=== PATIENT | female | born 1965 | race Caucasian/White ===

== ENCOUNTER 2022-07-05 11:24 | Emergency (ER) | payer MEDICAID ==
[~2022-07-05] VITALS: Ht 170.2 cm; Wt 61.4 kg
[2022-07-05 11:33] VITALS: BP 120/75
[2022-07-05] MEDS ORDERED: BUPR-94 PO (14:02)
[2022-07-05] MEDS ORDERED: CHOL100025 PO (14:02)
[2022-07-05] MEDS ORDERED: MIRT45TA79 PO (14:02)
[2022-07-05] MEDS ORDERED: ATOR40TA71 PO (14:02)
[2022-07-05] MEDS ORDERED: OMEG1CAP46 PO (14:02)
[2022-07-05] MEDS ORDERED: LEVE500T99 PO (14:02)
[2022-07-05] MEDS ORDERED: BACL-11 PO (14:02)
[2022-07-05] MEDS ORDERED: MULT-1074 PO (14:02)
[2022-07-05] MEDS ORDERED: ONDA4TAB12 PO (14:02)
[2022-07-05] MEDS ORDERED: GABA-534 PO (14:02)
[2022-07-05] MEDS ORDERED: OXYC-145 PO (14:02)
== END 2022-07-05 14:23 | disposition home or self-care (01) ==
LOC: ER 11:24
DX: Z76.0 Encounter for issue of repeat prescription (principal); E78.00 Pure hypercholesterolemia, unspecified
CPT/HCPCS: 99284

== ENCOUNTER 2022-07-19 13:26 | Emergency (ER) | payer MEDICAID ==
[~2022-07-19] VITALS: Ht 170.2 cm; Wt 61.4 kg
[~2022-07-19 13:26] MED LIST: ATOR40TA71 PO; BACL-11 PO; BUPR-94 PO; CHOL100025 PO; GABA-534 PO; LEVE500T99 PO; MIRT45TA79 PO; MULT-1074 PO; OMEG1CAP46 PO; ONDA4TAB12 PO; OXYC-145 PO
[2022-07-19 15:05] LABS: BASOPHILS % (AUTO) 0.7 % (0-1); EOSINOPHILS % (AUTO) 0.3 % (0-6); HEMATOCRIT 38.3 % (35.0-45.0); LYMPHOCYTES # (AUTO) 1.1 X10'3 (1.1-4.8); MEAN CORPUSCULAR VOLUME 94.1 FL (78-98); MEAN PLATELET VOLUME 7.3 FL (7.4-10.4); MONOCYTES # (AUTO) 0.3 X10'3 (0-0.9); MONOCYTES % (AUTO) 6.1 % (2-12); NEUTROPHILS % (AUTO) 72.9 % (42-75); PLATELET COUNT 265 X10'3 (140-440); RED BLOOD COUNT 4.07 X10'6 (4.20-5.60); RED CELL DISTRIBUTION WIDTH 13.2 % (11.5-14.5); WHITE BLOOD COUNT 5.4 X10'3 (4.5-11.0)
[2022-07-19] MEDS ORDERED: ibuprofen 200mg tablet PO ONE (15:10)
[2022-07-19 15:16] LABS: ALANINE AMINOTRANSFERASE 20 U/L (12-78); ALBUMIN 3.7 G/DL (3.4-5.0); ALBUMIN/GLOBULIN RATIO 1.2 (1.1-1.5); ALKALINE PHOSPHATASE 82 IU/L (46-116); ANION GAP 7 (8-16); ASPARTATE AMINO TRANSFERASE 15 U/L (10-37); BILIRUBIN,TOTAL 0.4 MG/DL (0.1-1.0); BLOOD UREA NITROGEN 9 MG/DL (7-18); BUN/CREATININE RATIO 14.3 (6.6-38.0); CALCIUM 9.5 MG/DL (8.5-10.1); CHLORIDE 104 MMOL/L (99-107); CREATININE 0.63 MG/DL (0.40-0.90); GLUCOSE 109 MG/DL (70-104); SODIUM 140 MMOL/L (135-145); TOTAL CARBON DIOXIDE 29.5 MMOL/L (24-32); TOTAL PROTEIN 6.7 G/DL (6.4-8.2); eGFR > 90 ML/MIN
[2022-07-19] MEDS ORDERED: levetiracetam 250mg tablet PO ONE (15:45)
--- NOTE | 2022-07-19 17:27 | NUR ---
Pt adamantly refusing hospital gown
[2022-07-19] MEDS ORDERED: GABA-530 PO (17:37)
[2022-07-19] MEDS ORDERED: KEP500T PO (17:37)
[2022-07-19] MEDS ORDERED: ACET325T53 PO (17:58)
[2022-07-19 18:10] VITALS: BP 118/77
== END 2022-07-19 18:19 | disposition home or self-care (01) ==
LOC: ER 13:27
DX: S42.492A Other displaced fracture of lower end of left humerus, initial encounter for closed fracture (principal); E78.00 Pure hypercholesterolemia, unspecified; Z79.899 Other long term (current) drug therapy; Z79.1 Long term (current) use of non-steroidal anti-inflammatories (NSAID); R53.1 Weakness; W18.39XA Other fall on same level, initial encounter; Y93.89 Activity, other specified; Y92.89 Other specified places as the place of occurrence of the external cause; Y99.8 Other external cause status
CPT/HCPCS: 36415; 70450; 71045; 73030; 73060; 80053; 83880; 84484; 85025; 99285

== ENCOUNTER 2025-08-15 14:41 | Emergency (ER) | payer MEDICAID ==
[~2025-08-15] VITALS: Ht 170.2 cm; Wt 61.4 kg
[~2025-08-15 14:41] MED LIST changes: +GABA-530 PO; -GABA-534 PO; +GABA-535 PO; +KEP500T PO; +LEVE-21 PO; -LEVE500T99 PO; +ONDA-243 PO; -ONDA4TAB12 PO
[2025-08-15 14:44] VITALS: BP 132/77; PULSE 87; RESP 18; O2SAT 98
--- NOTE | 2025-08-15 15:08 | RADIOLOGY REPORT ---
CLINICAL INDICATION: Shoulder Pain TECHNIQUE: DI SHOULDER, COMPLETE (MIN 2 VWS) left COMPARISON: SHOULDER, COMPLETE (MIN 2 VWS) on DOS: 07/19/22 FINDINGS/IMPRESSION: : There is no evidence of acute fracture or dislocation. Soft tissues are unremarkable.
--- NOTE | 2025-08-15 15:25 | RADIOLOGY REPORT ---
CHEST RADIOGRAPH INDICATION: Fall TECHNIQUE: Single frontal view of the chest was obtained COMPARISON: CHEST,SINGLE VIEW on DOS: 07/19/22 FINDINGS: Lines and Tubes: None Lungs: Clear Pleura: No effusion. No pneumothorax. Cardiomediastinal contours: Unremarkable Bones: Unremarkable IMPRESSION: No acute disease.
--- NOTE | 2025-08-15 15:27 | Physician Documentation ---
History of Present Illness ~ Chief Complaint: Shoulder pain Stated Complaint: FALL Time Seen by MD: 14:49 Primary Medical Doctor: [facility] HPI 60-year-old female who had a mechanical fall while transferring from a wheelchair & landed on her left hip left shoulder and left chest. Patient has a known left side paralysis secondary to a stroke. She wears an orthotic. Took a fall a week ago continues to have pain. Has extensive bruising to the left upper leg and hip. She is not on blood thinners. There was no gross deformity and she is grossly neurologically intact. Tetanus within 5 years?: No Medication Reconciliation Allergies: Coded Allergies: No Known Allergies (Unverified , 07/05/22) Scheduled Atorvastatin Calcium (Atorvastatin Calcium), 1 TAB PO DAILY Baclofen (Baclofen), 1 TAB PO Q8H Bupropion Hcl (Wellbutrin Xl), 1 TAB PO DAILY Cholecalciferol (Vitamin D), 1 TAB PO DAILY Gabapentin (Gabapentin), 1 CAP PO Q8H Gabapentin (Gabapentin), 2 CAP PO BID Levetiracetam (Levetiracetam), 1 TAB PO Q12H Levetiracetam (Keppra), 1 TAB PO Q12H Mirtazapine (Mirtazapine), 1 TAB PO HS Multivitamin (Multi-Vitamin Daily), 1 TAB PO DAILY Orlando-3 Fatty Acids/Fish Oil ([place] 3 1,000 mg Softgel), 1 CAP PO Q8H Scheduled PRN ONDANSETRON ODT 4mg tablet (Ondansetron Odt), 1 TABLET PO Q6H PRN for nausea/vomiting Oxycodone HCl/Acetaminophen (Percocet 5-325 mg Tablet), 1 TAB PO Q12H PRN PRN for pain Past Medical History Past Medical History: CVA/TIA/Stroke, High Cholesterol Lives In: Home Review of Systems All Other Systems at this time: Reviewed and Negative Constitutional: Reports: see HPI Physical Exam Vital Signs: RN Vital Signs have been reviewed: Yes, Temperature: 97.6, Source: Temporal, Heart Rate: 87, Respiratory Rate: 18, BP: 132/77, Pulse Oximetry: 98, Weight: 61.360 Oxygen Flow Rate: 0 General Appearance: alert, WD/WN, mild distress EENT: PERRL/EOMI Respiratory: no respiratory distress Chest: tender (Left upper chest wall without flail segments or bruising) Gastrointestinal: non-tender Back: normal inspection Back Considerable ecchymosis to the left lateral thigh from the hip to the knee, no crepitus or subcutaneous air. Clavicle: normal inspection Shoulder: bone tenderness, limited ROM, soft tissue tenderness; No: ecchymosis, swelling Progress Results/Orders Results/Orders Orders - HOWIE KAUR PAC Chest,Single View (08/15/25 15:15) Hip Unilateral 2-3 Views (08/15/25 15:15) Completed Orders - HOWIE KAUR PAC Chest,Single View (08/15/25 15:15) Hip Unilateral 2-3 Views (08/15/25 15:15) Vital Signs 08/15/25 14:44 Temp 97.6 Pulse 87 Resp 18 B/P (MAP) 132/77 Pulse Ox 98 O2 Flow Rate 0 Medical Decision Making Additional information obtaine: old records Findings Examination and history warrants x-ray imaging to evaluate for acute and/or occult fractures. X-ray imaging preliminary reviewed by myself shows no obvious fractures & stable chest wall. Pain management provided for patient recommendations follow up with the primary care physician. Safely discharged home Differential Dx:Considerations: Include: AC separation, Adhesive capsulitis, arthritis, Bicipital tendonitis, Calcific tendonitis, Cervical disc disease, Contusion, Dislocation, Fracture: Humerus, Fracture: Scapula, Fracture: Clavicle, Gallbladder Disease, Hematoma, Impingement syndrome, Myocardial infarction, Neurovascular Injury, Rotator cuff injury, SC dislocation, Sprain, Subacromial bursitis, other Departure Disposition: 01 HOME / SELF CARE / HOMELESS Impression: Primary Impression: Contusion of left shoulder Qualified Codes: S40.012A - Contusion of left shoulder, initial encounter Additional Impressions: Contusion of left hip Qualified Codes: S70.02XA - Contusion of left hip, initial encounter Chest wall contusion Qualified Codes: S20.212A - Contusion of left front wall of thorax, initial encounter Fall Qualified Codes: W19.XXXA - Unspecified fall, initial encounter Condition: Improved Discharge Instructions: Shoulder Pain, [id number] Additional Instructions: X-rays obtained today in the emergency department of your hip, shoulder and chest wall are all reassuring. Please continue with the current medications as directed and make follow up appointment with your primary care physician. Return to the emergency department if symptoms worsen. Have a happy holiday season. Referrals: NO PRIMARY CARE PROVIDER (PCP) Prescriptions Hydrocodone Bit/Acetaminophen 5/325 MG ([place] 5/325 MG) 5 Mg/325 Mg Tablet 1 TAB PO Q6H PRN for pain, #9 TAB Prov: HOWIE KAUR 08/15/25 Education Educated: Patient Educated regarding: diagnosis, treatment, prognosis, need for follow up Signature Scribe Signature: . Attestation: . HOWIE KAUR PAC Aug 15, 2025 15:27
--- NOTE | 2025-08-15 15:28 | RADIOLOGY REPORT ---
CLINICAL INDICATION: Fall LEFT HIP PAIN TECHNIQUE: DI HIP UNILATERAL 2-3 VIEWS COMPARISON: None FINDINGS/IMPRESSION: : There is no evidence of acute fracture or dislocation. Soft tissues are unremarkable.
[2025-08-15 15:37] VITALS: TEMP 97.6
[2025-08-15] MEDS ORDERED: HYDR-3965 PO (15:37)
== END 2025-08-15 15:38 | disposition home or self-care (01) ==
LOC: ER 14:42
DX: S40.012A Contusion of left shoulder, initial encounter (principal); S20.212A Contusion of left front wall of thorax, initial encounter; S70.02XA Contusion of left hip, initial encounter; S70.12XA Contusion of left thigh, initial encounter; E78.00 Pure hypercholesterolemia, unspecified; Z79.899 Other long term (current) drug therapy; W18.39XA Other fall on same level, initial encounter; Y93.89 Activity, other specified; Y92.89 Other specified places as the place of occurrence of the external cause; Y99.8 Other external cause status
CPT/HCPCS: 71045; 73030; 73502; 99284